=== PATIENT | female | born 1955 | race Caucasian/White ===

== ENCOUNTER 2019-03-27 12:31 | Inpatient (IN) | payer OTHER ==
[~2019-03-27] VITALS: Ht 165.1 cm; Wt 69.9 kg
--- NOTE | 2019-03-27 12:50 | NUR ---
Cat bite "was bitten sunday night around 830-was seen and given augmentin NOT getting better went to yesterday was given IV abx area seems swollen. Patient a/ox4, breathing even and unlabored, no sob noted, changed into gown, no distress noted.
[2019-03-27] MEDS ORDERED: AMOX-430 PO (13:10)
[2019-03-27 13:15] LABS: BASOPHILS % (AUTO) 0.5 % (0.0-2.0); EOSINOPHILS % (AUTO) 1.3 % (0.0-6.0); HEMATOCRIT 43 % (33-45); HEMOGLOBIN 14.3 g/dL (11.5-14.8); LYMPHOCYTES # (AUTO) 1.4 /CMM (0.8-4.8); LYMPHOCYTES % (AUTO) 15.9 % (20.0-44.0); MEAN CORPUSCULAR HGB CONC 33 g/dl (31.0-36.0); MEAN CORPUSCULAR VOLUME 101 fL (82-100); MONOCYTES # (AUTO) 0.7 /CMM (0.1-1.30); MONOCYTES % (AUTO) 7.4 % (2.0-12.0); NEUTROPHILS # (AUTO) 6.6 /CMM (1.8-8.9); NEUTROPHILS % (AUTO) 74.9 % (43.0-81.0); PLATELET COUNT (AUTO) 265 /CMM (150-450); RED BLOOD CELL COUNT(AUTO) 4.24 MIL/uL (4.0-5.2); WHITE BLOOD COUNT (AUTO) 8.8 K/uL (4.3-11.0)
--- NOTE | 2019-03-27 13:19 | NUR ---
[id number] [facility] sup
--- NOTE | 2019-03-27 13:23 | NUR ---
epic called. awaiting for admitting md call back.
[2019-03-27 13:24] LABS: CALCIUM, SERUM 10.1 mg/dL (8.5-10.1); CREATININE 0.8 mg/dL (0.6-1.3); POTASSIUM 3.8 mmol/L (3.5-5.1)
[2019-03-27] MEDS ORDERED: PIPERACILLIN /TAZOBACTAM 3.375 G in IV D5W 50 ML IV ONE (13:30)
--- NOTE | 2019-03-27 13:44 | NUR ---
GOT BED 312-2
--- NOTE | 2019-03-27 13:45 | NUR ---
Tracey marshall in ED - 03/27/19 at 1348 by SCOTTY report given to onofre rasmussen
--- NOTE | 2019-03-27 13:48 | NUR ---
report given to negrita hernandez for jill.
--- NOTE | 2019-03-27 14:30 | NUR ---
patient transferred to med surg in stable condition. No distress noted.
--- NOTE | 2019-03-27 14:32 | NUR ---
unable to depart patient at this time.
[2019-03-27 15:00] VITALS: BP 122/78
[2019-03-27] MEDS ORDERED: ZOLPIDEM TARTRATE 5 MG TABLET PO PRN (15:00)
[2019-03-27] MEDS ORDERED: VANCOMYCIN HCL 1.25 GM in IV D5W 260 ML IV SCH (15:00)
[2019-03-27] MEDS ORDERED: MAGNESIUM HYDROXIDE 30 ML UDC PO PRN (15:00)
[2019-03-27] MEDS ORDERED: ONDANSETRON HCL/PF 4 MG/2 ML VIAL IVP PRN (15:00)
[2019-03-27] MEDS ORDERED: MAG HYDROX/AL HYDROX/SIMETH 30 ML UDC PO PRN (15:00)
[2019-03-27] MEDS ORDERED: Z GUARD REMEDY 2 OZ OINT TP PRN (15:00)
[2019-03-27] MEDS ORDERED: ACETAMINOPHEN 325 MG TABLET PO PRN (15:00)
[2019-03-27] MEDS ORDERED: HYDROCODONE/APAP 5/325MG 1 EACH TABLET PO PRN ×2 (15:00→15:30)
--- NOTE | 2019-03-27 15:00 | NUR ---
ms rn admitted a new patient, came from er w/ dx right hand cellulitis,s/p cat bite, awake,alert. oriented sx4, with reddish discoloration on the sight, denies pain at this time,all needs attended.
[2019-03-27] MEDS ORDERED: FEE PK DOSING 1 MIN EA MC ONE (15:12)
[2019-03-27 16:00] VITALS: BP 153/88
[2019-03-27] MEDS: IV NS 0.9% 1,000 ML IV PRN (16:53)
[2019-03-27] MEDS: VANCOMYCIN 0.75 GM in IV D5W 250 ML IV SCH (16:54)
[2019-03-27] MEDS: ENOXAPARIN SODIUM 40 MG/0.4 ML DISP.SYRIN SQ SCH (17:10)
--- NOTE | 2019-03-27 17:46 | NUR ---
ms rn its a big help,but she has a lot .
--- NOTE | 2019-03-27 18:23 | NUR ---
MS RN ON BED, NO DISTRESS NOTED,ALL NEEDS ATTENDED.
[2019-03-27] MEDS: PIPERACILLIN /TAZOBACTAM 3.375 G in IV D5W 50 ML IV SCH (18:54)
--- NOTE | 2019-03-27 19:31 | NUR ---
MS RN OPENING NOTE RECEIVED PATIENT IN BED. A/O X4. TOLERATING ROOM AIR. RESPIRATIONS ARE EVEN AND UNLABORED. NO SOB NOTED. DENIES PAIN AT THIS TIME. IN NO APPARENT DISTRESS. IV ACCESS IN LAC #20 RUNNING NS @75ML/HR. BED IS LOW AND LOCKED, HOB ELEVATED 70 DEGREES, SIDE RAILS UP X2. CALL LIGHT WITHIN REACH. WILL CONTINUE TO MONITOR.
[2019-03-27 20:00] VITALS: BP 132/78
[2019-03-27 20:01] VITALS: BP 132/78
[2019-03-28] MEDS: PIPERACILLIN /TAZOBACTAM 3.375 G in IV D5W 50 ML IV SCH ×4 (00:17→18:52)
[2019-03-28] MEDS: VANCOMYCIN 0.75 GM in IV D5W 250 ML IV SCH ×3 (00:54→16:37)
--- NOTE | 2019-03-28 06:28 | NUR ---
MS RN CLOSING NOTE PATIENT IN BED. A/O X4. REMAINS TOLERATING ROOM AIR. RESPIRATIONS ARE EVEN AND UNLABORED. NO SOB NOTED THROUGHOUT SHIFT. NO C/O PAIN. NO DISTRESS NOTED. IV ACCESS MAINTAINED IN LAC #20 RUNNING NS @75ML/HR. BED IS LOW AND LOCKED, HOB ELEVATED 30 DEGREES, SIDE RAILS UP X2. CALL LIGHT WITHIN REACH. WILL ENDORSE TO NEXT SHIFT.
--- NOTE | 2019-03-28 07:15 | NUR ---
MS RN OPENING NOTES RECEIVED PATIENT ALERT AND AWAKE, ORIENTED X4. NO SOB. DENIES ANY C/O PAIN NOR DISCOMFORT AT THIS TIME. BED IN LOWEST POSITION ,LOCKED. CALL LIGHT WITHIN REACH. AMBULATORY WITH STEADY GAIT. ABLE TO VERBALIZE NEEDS.
[2019-03-28 08:00] VITALS: BP 131/78
[2019-03-28 08:38] LABS: BASOPHILS % (AUTO) 0.7 % (0.0-2.0); EOSINOPHILS % (AUTO) 1.8 % (0.0-6.0); HEMATOCRIT 42 % (33-45); HEMOGLOBIN 14.4 g/dL (11.5-14.8); LYMPHOCYTES # (AUTO) 1.3 /CMM (0.8-4.8); LYMPHOCYTES % (AUTO) 27.2 % (20.0-44.0); MEAN CORPUSCULAR HGB CONC 34 g/dl (31.0-36.0); MEAN CORPUSCULAR VOLUME 100 fL (82-100); MONOCYTES # (AUTO) 0.4 /CMM (0.1-1.30); MONOCYTES % (AUTO) 8.6 % (2.0-12.0); NEUTROPHILS # (AUTO) 2.8 /CMM (1.8-8.9); NEUTROPHILS % (AUTO) 61.7 % (43.0-81.0); PLATELET COUNT (AUTO) 248 /CMM (150-450); RED BLOOD CELL COUNT(AUTO) 4.18 MIL/uL (4.0-5.2); WHITE BLOOD COUNT (AUTO) 4.6 K/uL (4.3-11.0)
[2019-03-28 08:52] LABS: ALBUMIN 3.3 g/dL (3.4-5.0); BILIRUBIN,TOTAL 0.8 mg/dL (0.2-1.0); CALCIUM, SERUM 9.3 mg/dL (8.5-10.1); CREATININE 0.8 mg/dL (0.6-1.3); MAGNESIUM 1.8 mg/dL (1.8-2.4); PHOSPHORUS 3.5 mg/dL (2.5-4.9); POTASSIUM 3.5 mmol/L (3.5-5.1)
[2019-03-28] MEDS ORDERED: TDAP [DIPH/PERTUSSIS/TET] 0.5 ML VIAL IM ONE (12:00)
--- NOTE | 2019-03-28 13:28 | NUR ---
WOUND CARE RECEIVED CONSULT FOR RIGHT HAND CAT BITE. WOUND CARE WILL DEFER CONSULT AND TREATMENT PLANS TO PLASTIC SURGICAL TEAM WHO HAVE BEEN NOTIFIED OF THE CONSULT. PATIENT WITH GIO AT 23, WILL SEE PRN.
[2019-03-28] MEDS: NEOMY SULF/BACITRAC ZN/POLY 15 GM TUBE TP SCH (16:37)
[2019-03-28 16:39] VITALS: BP 133/80
--- NOTE | 2019-03-28 19:00 | NUR ---
MS RN CLOSING NOTES PATIENT RESTING COMFORTABLY IN BED. DENIES ANY C/O PAIN NOR DISCOMFORT. LEFT FA # 22 INTACT INFUSING NS @ 75ML/HR. IN NO APPARENT DISTRESS. ABLE TO VERBALIZE NEEDS FAMILY AT BEDSIDE. CALL LIGHT WITHIN REACH.
--- NOTE | 2019-03-28 19:30 | NUR ---
MSRN FULLY AWAKE, VISITORS AT BEDSIDE. PROVIDED PRIVACY. TO CONTINUE.
[2019-03-28 20:00] VITALS: BP 131/67
[2019-03-28] MEDS: IV NS 0.9% 1,000 ML IV PRN (20:20)
[2019-03-28 20:30] VITALS: BP 131/67
[2019-03-28] MEDS: ENOXAPARIN SODIUM 40 MG/0.4 ML DISP.SYRIN SQ SCH (20:36)
--- NOTE | 2019-03-28 21:15 | NUR ---
MSRN USED RESTROOM, VOIDED FREELY. GAIT STEADY. RIGHT HAND LESS SWOLLEN. DRSG SLIGHTLY SOILED WITH PUS. DRESSING CHANGED, TRIPLE ANTIBIOTIC APPLIED TO SITE, DRESSED WITH STERILE GAUZE. DENIES PAIN ON THE SITE. IVF CONTINUED. DUE MED ADMINISTERED.
[2019-03-29] MEDS: PIPERACILLIN /TAZOBACTAM 3.375 G in IV D5W 50 ML IV SCH ×2 (00:24→07:37)
[2019-03-29] MEDS: VANCOMYCIN 0.75 GM in IV D5W 250 ML IV SCH ×2 (01:17→09:19)
--- NOTE | 2019-03-29 06:15 | NUR ---
MSRN BRP, NO COMPLAINTS MADE. ZOSYN 6 AM DOSE INFUSING WELL. RIGHT HAND WOUND WITH MODERATE AMOUNT OF DRAINAGE, DRESSING CHANGED PER ORDERS
--- NOTE | 2019-03-29 07:54 | NUR ---
RN OPENING NOTES Patient received on room air, no sob noted, patient a/o x4 and denies pain at this time. Patient stated that her hand is not swollen anymore and that it feels better. Patient remains with LEFT FA 22 with NS @ 75 ml per hour. Bed at the lowest setting, call light within reach, side rails up x2.
[2019-03-29 08:00] VITALS: BP 122/81
[2019-03-29 08:03] LABS: CREATININE 0.7 mg/dL (0.6-1.3); POTASSIUM 3.2 mmol/L (3.5-5.1)
[2019-03-29] MEDS: NEOMY SULF/BACITRAC ZN/POLY 15 GM TUBE TP SCH (09:33)
[2019-03-29] MEDS ORDERED: POTASSIUM CHLORIDE 20 MEQ TAB.PRT.SR PO SCH ×2 (12:00→13:00)
--- NOTE | 2019-03-29 12:29 | NUR ---
DATABASE DEVELOPMENT PROJECT MANAGER NOTES Patient discharged at this time. No sob noted, patient denies pain or discomfort. Patient has all her paperworks and has no current questions about the discharge instructions. Patient is not missing anything at this time, belongings list signed. IV line removed with minimal bleeding noted.
[2019-03-29] MEDS ORDERED: LACTOBACILLUS RHAMNOSUS GG 1 EACH CAP.SPRINK PO SCH (17:00)
== END 2019-03-29 12:30 | disposition home or self-care (01) | DRG 603 ==
LOC: ER 12:31 → MEDSG1 13:49 → MED 15:42
PROVIDERS: ADMIT Hospitalist; ATTEND Hospitalist
DX: L03.113 Cellulitis of right upper limb (principal); E44.1 Mild protein-calorie malnutrition; W55.01XA Bitten by cat, initial encounter; Y92.89 Other specified places as the place of occurrence of the external cause; E88.09 Other disorders of plasma-protein metabolism, not elsewhere classified; Z68.25 Body mass index [BMI] 25.0-25.9, adult; Z88.2 Allergy status to sulfonamides
CPT/HCPCS: 36415; 80048-TC; 80053-TC; 80061-TC; 80202-TC; 83735-TC; 84100-TC; 85025-TC; 87040-TC; 87081-TC; 90715; G0378; J1650; J2543; J3370; J7030; J7060

== ENCOUNTER 2019-06-10 10:30 | Outpatient (CLI) | payer OTHER ==
[~2019-06-10 10:30] MED LIST: AMOX-430 PO
== END 2019-06-10 23:59 | disposition home or self-care (01) ==
LOC: WOU 10:30
PROVIDERS: ATTEND Podiatrist Foot & Ankle Surgery
DX: S81.812A Laceration without foreign body, left lower leg, initial encounter (principal); X58.XXXA Exposure to other specified factors, initial encounter; Y92.89 Other specified places as the place of occurrence of the external cause; L03.116 Cellulitis of left lower limb; E78.5 Hyperlipidemia, unspecified
CPT/HCPCS: G0463

== ENCOUNTER 2019-06-20 08:40 | Outpatient (CLI) | payer OTHER | END 2019-06-20 23:59 | disposition home or self-care (01) | LOC: WOU 08:40 | PROVIDERS: ATTEND Podiatrist Foot & Ankle Surgery | DX: S81.812D Laceration without foreign body, left lower leg, subsequent encounter (principal); L03.116 Cellulitis of left lower limb; X58.XXXD Exposure to other specified factors, subsequent encounter; R60.0 Localized edema | CPT/HCPCS: G0463 ==

== ENCOUNTER 2019-07-01 08:00 | Outpatient (CLI) | payer OTHER | END 2019-07-01 23:59 | disposition home or self-care (01) | LOC: WOU 08:00 | PROVIDERS: ATTEND Podiatrist Foot & Ankle Surgery | DX: S81.812A Laceration without foreign body, left lower leg, initial encounter (principal); X58.XXXA Exposure to other specified factors, initial encounter; Y92.89 Other specified places as the place of occurrence of the external cause | CPT/HCPCS: 11042 ==

== ENCOUNTER 2019-07-15 08:00 | Outpatient (CLI) | payer OTHER | END 2019-07-15 23:59 | disposition home or self-care (01) | LOC: WOU 08:00 | PROVIDERS: ATTEND Podiatrist Foot & Ankle Surgery | DX: S81.812A Laceration without foreign body, left lower leg, initial encounter (principal); X58.XXXA Exposure to other specified factors, initial encounter; Y92.89 Other specified places as the place of occurrence of the external cause; L03.116 Cellulitis of left lower limb | CPT/HCPCS: 11042; A6209 ==

== ENCOUNTER 2019-07-29 08:05 | Outpatient (CLI) | payer OTHER | END 2019-07-29 23:59 | disposition home or self-care (01) | LOC: WOU 08:05 | PROVIDERS: ATTEND Podiatrist Foot & Ankle Surgery | DX: S81.812D Laceration without foreign body, left lower leg, subsequent encounter (principal); X58.XXXD Exposure to other specified factors, subsequent encounter | CPT/HCPCS: G0463 ==